=== PATIENT | male | born 1945 | race Caucasian/White ===

== ENCOUNTER 2021-03-24 07:06 | Outpatient (REF) | payer SELFPAY ==
[2021-03-24 09:27] LABS: Free T4 (Free Thyroxine) 0.73 ng/dL (0.71-1.85); Thyroid Stimulating Hormone 1.26 uIU/mL (0.32-4.0); Vitamin D 25-OH Total 11.7 ng/mL (>30)
[2021-03-28 11:37] LABS: Calcium (PTHI) 9.7 mg/dL (8.6-10.3); PTHI 671 pg/mL (14-64)
== END 2021-03-24 07:07 | disposition home or self-care (01) ==
LOC: HO.HSH2N 07:06
PROVIDERS: Visit Provider Nurse Practitioner Acute Care
DX: N18.5 Chronic kidney disease, stage 5 (principal)
CPT/HCPCS: 36415; 82306; 83970; 84439; 84443

== ENCOUNTER 2021-03-30 07:15 | Outpatient (REF) | payer SELFPAY ==
[2021-03-30 09:32] LABS: Albumin Level 3.7 g/dL (3.5-5.0); Calcium 9.9 mg/dL (8.4-10.2); Iron 57 mcg/dL (45-160); Percent Iron Saturation 24 % (15-50); Total Iron Binding Capacity 242 mcg/dL (228-428); Unsaturated Iron Binding 185 ug/dL
[2021-03-30 10:29] LABS: Folate > 20.0 ng/mL (> or = 4.0)
== END 2021-03-30 07:16 | disposition home or self-care (01) ==
LOC: HO.HSH2N 07:15
PROVIDERS: Visit Provider Nurse Practitioner Acute Care
DX: E55.9 Vitamin D deficiency, unspecified (principal); E87.6 Hypokalemia
CPT/HCPCS: 36415; 82040; 82310; 82746; 83540

== ENCOUNTER 2021-04-07 06:50 | Outpatient (REF) | payer SELFPAY ==
[2021-04-07 07:58] LABS: MANUAL DIFF FLAG NO
[2021-04-07 08:12] LABS: Basophils Percent Auto 0.4 % (0-2); Eosinophils Absolute Auto 0.4 X10*3/uL (0.0-0.4); Hematocrit 29.7 % (42-52); Hemoglobin 9.2 g/dl (14.0-18.0); Imm Gran Abs Auto 0.04 X10*3/uL (0.00-0.03); Imm Gran Pct Auto 0.5 % (0.0-0.4); Lymphocytes Absolute Auto 1.7 X10*3/uL (1.2-4.9); Lymphocytes Percent Auto 22.2 % (20-40); Mean Corpuscular Hemoglobin 30.4 pg (27.0-33.0); Mean Platelet Volume 8.5 fL (9.4-12.4); Monocytes Absolute Auto 0.9 X10*3/uL (0.1-1.2); Neutrophils Absolute Auto 4.6 X10*3/uL (2.0-8.3); Neutrophils Percent Auto 59.9 % (45-73); Platelet Count 168 X10*3/uL (160-400); Red Blood Count 3.03 X10*6/uL (4.60-5.80); Red Cell Distribution Width 14.5 % (11.0-16.0); White Blood Count 7.6 X10*3/uL (4.8-10.8)
[2021-04-07 08:22] LABS: INTERNATIONAL NORM RATIO 1.1 (0.9-1.1); Prothrombin Time 12.6 SEC (10.8-13.0)
[2021-04-07 08:25] LABS: Partial Thromboplastin Time 32.7 SEC (24.1-38.0)
[2021-04-07 08:49] LABS: Alanine Aminotransferase 6 U/L (0-40); Albumin Level 3.6 g/dL (3.5-5.0); Alkaline Phosphatase 106 U/L (39-117); Anion Gap 15 (12-20); Aspartate Amino Transferase 9 U/L (5-37); Bilirubin Total 0.6 mg/dL (0.0-1.0); Blood Urea Nitrogen 62 mg/dL (9-16); Calcium 9.7 mg/dL (8.4-10.2); Carbon Dioxide 16 mmol/L (22-29); Chloride 114 mmol/L (96-108); Estimated Glomerular Filt Rate 10; Glucose Random 77 mg/dL (60-115); Potassium 5.1 mmol/L (3.3-5.1); Sodium 140 mmol/L (135-145); Total Protein 5.7 g/dL (6.5-8.0)
== END 2021-04-07 06:51 | disposition home or self-care (01) ==
LOC: HO.HSH2N 06:50
PROVIDERS: Visit Provider Nurse Practitioner Acute Care
DX: Z01.818 Encounter for other preprocedural examination (principal); N40.0 Benign prostatic hyperplasia without lower urinary tract symptoms; N18.5 Chronic kidney disease, stage 5
CPT/HCPCS: 36415; 80053; 85025; 85610; 85730; 87086; 87088; 87186

== ENCOUNTER 2021-04-25 07:03 | Outpatient (REF) | payer OTHER, SELFPAY ==
[2021-04-25 09:08] LABS: Albumin Level 3.7 g/dL (3.5-5.0); Calcium 9.7 mg/dL (8.4-10.2); Phosphorus 5.9 mg/dL (2.7-4.5)
[2021-04-25 12:33] LABS: Anion Gap 13 (12-20); Carbon Dioxide 16 mmol/L (22-29); Chloride 117 mmol/L (96-108); Magnesium 1.6 mg/dL (1.6-2.6); Potassium 5.3 mmol/L (3.3-5.1); Sodium 141 mmol/L (135-145)
[2021-04-27 10:07] LABS: Calcium (PTHI) 9.8 mg/dL (8.6-10.3); PTHI 658 pg/mL (14-64)
== END 2021-04-25 07:04 | disposition home or self-care (01) ==
LOC: HO.HSH2N 07:03
PROVIDERS: Visit Provider Nurse Practitioner Acute Care
DX: N18.9 Chronic kidney disease, unspecified (principal); E87.5 Hyperkalemia; E21.3 Hyperparathyroidism, unspecified
CPT/HCPCS: 36415; 80051; 82040; 82310; 83735; 83970; 84100

== ENCOUNTER 2022-02-01 11:05 | Outpatient (REF) | payer OTHER, SELFPAY ==
[2022-02-01 13:25] LABS: Anion Gap 14 (12-20); Blood Urea Nitrogen 60 mg/dL (9-16); Carbon Dioxide 16 mmol/L (22-29); Chloride 116 mmol/L (96-108); Estimated Glomerular Filt Rate 8; Phosphorus 5.7 mg/dL (2.7-4.5); Sodium 141 mmol/L (135-145)
== END 2022-02-01 11:06 | disposition home or self-care (01) ==
LOC: HO.HSH4W 11:05
PROVIDERS: Visit Provider Internal Medicine
DX: N19 Unspecified kidney failure (principal)
CPT/HCPCS: 36415; 80051; 82565; 84100; 84520

== ENCOUNTER 2022-03-22 06:45 | Outpatient (REF) | payer SELFPAY ==
[2022-03-22 08:40] LABS: Calcium 11.1 mg/dL (8.4-10.2)
[2022-03-22 09:04] LABS: Vitamin D 25-OH Total 17.3 ng/mL (>30)
[2022-03-23 12:26] LABS: Calcium (PTHI) 10.7 mg/dL (8.6-10.3); PTHI 1317 pg/mL (16-77)
== END 2022-03-22 06:46 | disposition home or self-care (01) ==
LOC: HO.HSH4W 06:45
PROVIDERS: Visit Provider Internal Medicine
DX: N18.9 Chronic kidney disease, unspecified (principal)
CPT/HCPCS: 36415; 82306; 82310; 83970